=== PATIENT | female | born 2000 | race Hispanic/Latino ===

== ENCOUNTER 2025-04-17 16:25 | Emergency (ER) | payer OTHER, SELFPAY ==
[2025-04-17 16:39] VITALS: BP 119/82; PULSE 82; RESP 16; TEMP 37.4; O2SAT 98; BMI 39.2
--- NOTE | 2025-04-17 17:02 | DI.US.S_ITS ---
PROCEDURE: US PELVIC COMPLETE INDICATIONS: heavy bleeding , 2 home positive TECHNIQUE: Real-time scanning was performed of the pelvic organs, with image documentation. Additional endovaginal scanning was necessary due to incomplete visualization of the adnexal and endometrial structures by transabdominal scanning. COMPARISON: None. FINDINGS: Uterus: Uterus is anteverted and enlarged in size at 9 x 3.7 x 4.4 cm. The myometrium is homogeneous. The endometrium measures 13.5 mm combined thickness. No evidence of intrauterine gestation. No gross endometrial mass or fluid is seen. Ovaries: The right ovary measures 1.9 x 2.3 x 1.9 cm, with a calculated ovarian volume of 4.4 cc. The left ovary is not visualized. Less than 12 follicles can be seen in right ovary. No solid appearing ovarian lesion. No ectopic gestational sac. No adnexal masses are seen. Other: No pathologic free abdominal or pelvic fluid. IMPRESSION: 1. No evidence of intrauterine gestation. No endometrial mass or fluid. 2. Normal appearing right ovary. Left ovary is not visualized. No adnexal mass or gross ectopic gestational sac. We strive to produce accurate, complete, and clear reports of imaging services. To assist us in improving patient care, this report was composed using standard report templates and voice recognition software. Therefore, it may contain abnormal punctuation, insertions and/or omissions. Occasional wrong-word or sound-alike substitutions may occur. Though we review the report and make efforts to correct it, we do recommend that the report be read carefully in proper context to recognize any text inaccuracies. Dictated by: Sal Plasencia M.D. on 04/17/2025 at 18:23 Approved by: Sal Plasencia M.D. on 04/17/2025 at 18:24
[2025-04-17 17:06] LABS: Add Manual Diff / Slide Review NO; Hematocrit 38.8 % (36-46); Hemoglobin 13.7 g/dL (12.0-16.0); Lymphocytes Absolute Auto 2300 /uL (1100-4500); Mean Corpuscular HGB Conc 35.3 % (30-36); Mean Corpuscular Hemoglobin 28.8 PG (26-34); Mean Corpuscular Volume 81.6 fL (80-100); Platelet Count 250 X10^3/uL (150-400)
[2025-04-17 17:13] LABS: Alanine Aminotransferase 29 IU/L (<35); Albumin 4.5 g/dL (3.5-5.0); Albumin Globulin Ratio 1.5 (1.0-2.8); Alkaline Phosphatase 84 U/L (38-126); Blood Urea Nitrogen 12 mg/dL (7-17); Calcium 8.7 mg/dL (8.4-10.2); Carbon Dioxide 21 mmol/L (22-32); Chloride 106 mmol/L (98-107); Estimated Glomerular Filt Rate > 60 mL/min (>60); Globulin 3.0 g/dL (1.7-4.1); Glucose 92 mg/dL (70-99); HEMOLYSIS 16 (0-50); Potassium 3.8 mmol/L (3.4-5.1); Sodium 137 mmol/L (137-145); Total Protein 7.5 g/dL (6.3-8.2)
[2025-04-17 17:30] LABS: HCG Quantitative /Beta subunit < 2.39 mIU/mL
[2025-04-17 19:39] VITALS: BP 133/94; PULSE 74; O2SAT 100
[2025-04-17 20:00] VITALS: BP 126/76; PULSE 73; RESP 16; O2SAT 100
--- NOTE | 2025-04-17 20:19 | ED.FEMALEGU ---
HPI - Female Genitourinary General Chief complaint: Vaginal Bleeding Stated complaint: positive preg test 2 wks ago- gush of blood today Time Seen by Provider: 04/17/25 20:14 Source: patient Mode of arrival: Ambulatory History of Present Illness HPI Narrative: 24-year-old female patient with a previous ?chemical ? which is what her special library librarian called it what sounds like a nonviable blighted ovum or some type of positive hCG without a . No true pregnancies prior. She had a faintly positive test about a week ago. She repeated it and it was faintly positive next day. Today she has had bleeding and cramps with some clots. No fever, chills or lightheadedness. Related Data Allergies Allergy/AdvReac Type Severity Reaction Status Date / Time Penicillins Allergy Mild Hives Verified 04/17/25 16:38 Review of Systems Review of Systems ROS Unobtainable: All systems reviewed & are unremarkable except as noted in HPI and below Constitutional Constitutional: Denies body ache(s), Denies chills, Denies fatigue and Denies fever(s) Cardiovascular Cardiovascular: Denies chest pain, Denies palpitations and Denies dyspnea Respiratory Respiratory: Denies cough and Denies dyspnea Gastrointestinal Gastrointestinal: Denies abdominal pain and Denies bloating Genitourinary Genitourinary: Reports as per HPI Endocrine Endocrine: Denies fatigue and Denies palpitations Exam Initial Vital Signs Initial Vital Signs: Vital Signs Temperature 99.3 F 04/17/25 16:39 Pulse Rate 82 04/17/25 16:39 Respiratory Rate 16 04/17/25 16:39 Blood Pressure 119/82 04/17/25 16:39 Pulse Oximetry 98 04/17/25 16:39 Oxygen Delivery Method Room Air 04/17/25 16:39 Const General: cooperative, healthy appearing, comfortable, well developed and No acute distress HENAK Head: normal to inspection GI Inspection: normal to inspection Palpation: soft, No guarding and No tender Auscultation: normal bowel sounds Speculum Exam - Vagina: vaginal bleeding (Moderate vaginal bleeding with no clots. ) Speculum Exam - Cervix: normal appearance of the cervix, closed and nontender Bimanual Exam- Vagina & Uterus: No tender OB/External & Speculum: vaginal bleeding (Moderate vaginal bleeding with no clots. ) Course Orders Ordered: ED Orders 04/17/25 16:51 Complete Blood Count AUTO DIFF Stat Comprehensive Metabolic Panel Stat HCG Quantitative /Beta subunit Stat 04/17/25 17:02 US pelvic complete Stat 04/17/25 17:08 Type and Screen Stat Vital Signs Vital signs: Vital Signs - 8 hr 04/17/25 19:39 04/17/25 19:39 04/17/25 20:00 Pulse Rate 74 Respiratory Rate Blood Pressure 133/94 H 126/76 Pulse Oximetry 100 04/17/25 20:00 04/17/25 20:30 04/17/25 20:30 Pulse Rate 73 74 Respiratory Rate 16 18 Blood Pressure 129/76 Pulse Oximetry 100 99 MDM - Female Genitourinary Lab Data 04/17/25 16:51 04/17/25 16:51 Labs: Lab Results 04/17/25 04/17/25 Range/Units 16:51 17:08 WBC 7.2 (4.5-11.0) X10^3/uL RBC 4.76 (4.0-5.2) X10^6/uL Hgb 13.7 (12.0-16.0) g/dL Hct 38.8 (36-46) % MCV 81.6 (80-100) fL MCH 28.8 (26-34) PG MCHC 35.3 (30-36) % RDW 14.5 (11.6-14.8) % Plt Count 250 (150-400) X10^3/uL Neut % (Auto) 59.0 (50-75) % Lymph % (Auto) 31.9 (25-40) % [place] % (Auto) 6.0 (3-14) % Eos % (Auto) 2.3 (2-4) % Baso % (Auto) 0.8 (0-2) % Neut # (Auto) 4200 (7088-3449) /uL Lymph # (Auto) 2300 (8189-2226) /uL [place] # (Auto) 400 (0-900) /uL Eos # (Auto) 200 (0-450) /uL Baso # (Auto) 100 (0-100) /uL Sodium 137 (137-145) mmol/L Potassium 3.8 (3.4-5.1) mmol/L Chloride 106 (98-107) mmol/L Carbon Dioxide 21 L (22-32) mmol/L BUN 12 (7-17) mg/dL Creatinine 0.57 (0.52-1.04) mg/dL Estimated GFR > 60 (>60) mL/min BUN/Creatinine Ratio 21.1 (6-22) Glucose 92 (70-99) mg/dL Calcium 8.7 (8.4-10.2) mg/dL Total Bilirubin 0.9 (0.2-1.3) mg/dL AST 26 (14-36) IU/L ALT 29 (<35) IU/L Alkaline Phosphatase 84 (38-126) U/L Total Protein 7.5 (6.3-8.2) g/dL Albumin 4.5 (3.5-5.0) g/dL Globulin 3.0 (1.7-4.1) g/dL Albumin/Globulin Ratio 1.5 (1.0-2.8) HCG, Quant < 2.39 mIU/mL Blood Type O Positive Antibody Screen Negative MDM Narrative Medical decision making narrative: Ultrasound shows no products of conception or sac in the uterus. Quantitative hCG is negligible. CBC unremarkable. This is either an early completed or in completed miscarriage or another positive hCG with no viable . Discharge Plan Departure Patient Disposition: Home Clinical Impression: Incomplete Instructions: DI for Miscarriage Activity Restrictions/Additional Instructions: Assessment: . Incomplete miscarriage of nonviable or possible blighted ovum or other ?chemical? Plan: Hydration, rest and supportive care and monitor symptoms. Ibuprofen up to 4 times a day. Follow up closely with your special library librarian within the next 2-3 days. Return to the ER if worse Stand Alone Forms: Patient Portal/API, Work Release Note
[2025-04-17 20:30] VITALS: BP 129/76; PULSE 74; RESP 18; O2SAT 99
== END 2025-04-17 21:06 | disposition home or self-care (01) ==
PROVIDERS: Emergency Medicine; Emergency Provider Emergency Medicine
DX: O03.4 Incomplete spontaneous abortion without complication (principal)
CPT/HCPCS: 36415; 76830; 76856; 80053; 84702; 85025; 86850; 86900; 86901; 99284